=== PATIENT | female | born 1940 | race Caucasian/White ===

== ENCOUNTER 2018-03-14 05:50 | Day surgery (SDC) | payer MEDICARE ==
[2018-03-14] MEDS ORDERED: DIPRIVAN 200 MG/20 ML IV ONE (05:51)
[2018-03-14] MEDS ORDERED: Ketamine HCl 50 MG/ML IJ ONE (05:51)
[2018-03-14] MEDS ORDERED: Lactated Ringers 1,000 ML IV ONE (06:13)
[2018-03-14] MEDS ORDERED: Lactated Ringers 1,000 ML IV SCH (06:30)
[2018-03-14 09:26] VITALS: O2SAT 95
[2018-03-14 09:36] VITALS: BP 131/80; PULSE 83
--- NOTE | 2018-03-14 13:06 | OP ---
SURGERY DATE/TIME: 03/14/2018 0745 PREOPERATIVE DIAGNOSES: 1) Epigastric pain, bloating. 2) The patient has not had a previous colon exam. The patient was felt the need to have endoscopic evaluation POSTOPERATIVE DIAGNOSES: 1) Schatzki's ring. 2) Moderate gastriitis. 3) Sigmoid diverticulosis. PROCEDURES: 1) Esophagogastroduodenoscopy with biopsy. 2) Colonoscopy. SURGEON: Dr. Harrington. ANESTHESIA: Medications given by the anesthesia department. BRIEF HISTORY: The patient is a 77 year old white female who presents now for epigastric discomfort and bloating. The patient reports she has never had a colon exam previously. The patient was felt the need to have endoscopic evaluation. We discussed doing her colon exam during her upper endoscopy. The patient agreed to the procedure. She was described the risks of the procedure including the risk of perforation, phlebitis, untoward reaction to medication, bleeding missed lesions. The patient verbalized her understanding and desired to have the procedure performed. DESCRIPTION OF PROCEDURE: The patient was given the medications by the anesthesia department0. She had continuous pulse oximetry, ECG monitoring, intermittent blood pressure monitoring and tidal CO2 monitoring during the examination. She was placed in the left lateral decubitus position. A bite block was placed and the flexible Olympus gastroscope was used to intubate the oropharynx. The scope was easily passed in the esophagus which appeared to be normal to just proximal to the gastroesophageal junction where there appeared to be a Schatzki's ring this was moderately tight and there also appeared to be the presence of hiatal hernia. The scope was passed into the stomach where the gastric bull was suctioned dry and the stomach was re-insufflated revealing normal gastric rugal folds which distended nicely with inflation of air. The scope was passed along the greater curvature of the stomach where appeared to be evidence of a gastropathy with small areas of punctate bleeding present. The scope was passed along the greater curvature of the stomach to the antrum where the pylorus is intubated. Duodenum inspected and found to be essentially normal. The scope is withdrawn towards the stomach. A retroflex view was obtained of the lesser curvature, fundus and cardia regions of the stomach. Again was noted hiatal hernia. The scope was then redirected towards the antrum and biopsies were obtained to rule out the presence of Helicobacter pylori-type organisms. The scope was withdrawn towards the stomach. There was noted to be a small amount of bleeding from where we passed through the web. The scope was removed from the patient. Next, a digital rectal exam was performed and revealed normal anal sphincter tone and no masses. The flexible Olympus pediatric colonoscope was used to intubate the rectum. A view of the colon was developed to the transverse colon where we ran into a hair pin turn. There was noted to be sigmoid diverticula but we were unable to pass beyond this area. The scope was withdrawn from the patient. Retroflex view obtained in the rectum, no mucosal lesions were encountered. The scope was removed from the patient who tolerated the procedure well and was sent back to OP recovery in good condition. The prep was good.
== END 2018-03-14 09:40 | disposition home or self-care (01) ==
LOC: SDC 05:50
PROVIDERS: ATTEND Family Medicine
DX: K22.2 Esophageal obstruction (principal); R10.13 Epigastric pain; R14.0 Abdominal distension (gaseous); K29.70 Gastritis, unspecified, without bleeding; K57.30 Diverticulosis of large intestine without perforation or abscess without bleeding
CPT/HCPCS: 94250; 99100; J2704

== ENCOUNTER 2021-08-01 17:18 | Emergency (ER) | payer MEDICARE ==
[2021-08-01] MEDS ORDERED: Sodium Chloride 0.9% 500 ML 500 ML IV ONE ×2 (17:34→17:43)
--- NOTE | 2021-08-01 17:34 | ERPHSYRPT ---
- History of Present Illness Time Seen by Provider: 08/01/21 17:29 Source: patient, EMS Exam Limitations: no limitations Physician History: This is an 81-year-old white female patient of Dr. Harrington who was brought into the emergency department by EMS because of confusion and lethargy. However, the patient arrives awake and appears oriented. She has no pain complaints. She has no chest pain. She has no shortness of breath. She does state that she gets a little weak and dizzy when she tries to get up quickly and move around. 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 She does state that she probably does not eat or drink as well as she should. Patient has no known drug allergies. Her oncologist is Dr. Bacon Timing/Duration: today Severity: mild Modifying Factors: Improves With: movement Associated Symptoms: weakness, No nausea, No vomiting, No abdominal pain, No shortness of breath, No cough, No chest pain, No fever, No headaches, No loss of appetite Allergies/Adverse Reactions: No Known Drug Allergies Allergy (Verified 08/01/21 17:22) Home Medications: Tramadol HCl 50 mg [Ultram 50 mg] 50 mg PO HS 03/11/18 [History] Potassium Chloride 10 meq PO DAILY PRN PRN 03/13/20 [History] Furosemide [Lasix] 20 mg PO DAILY PRN PRN 04/18/20 [History] Naproxen Sodium 220 mg [Aleve 220 MG] 220 mg PO QAM 02/05/21 [History] Travel Risk - International Travel Have you traveled outside of the country in past 3 weeks: No - Coronavirus Screening Are you exhibiting any of the following symptoms?: No Close contact with a COVID-19 positive Pt in past 14-21 Days: No - Review of Systems Constitutional: Weakness Eyes: No Symptoms Ears, Nose, & Throat: No Symptoms Respiratory: No Symptoms Cardiac: No Symptoms Abdominal/Gastrointestinal: No Symptoms Genitourinary Symptoms: No Symptoms Musculoskeletal: No Symptoms Skin: No Symptoms Neurological: No Symptoms Psychological: No Symptoms Endocrine: No Symptoms Hematologic/Lymphatic: No Symptoms Immunological/Allergic: No Symptoms All Other Systems: Reviewed and Negative - Past Medical History Pertinent Past Medical History: Yes Neurological History: No Pertinent History ENT History: Macular Degeneration Cardiac History: No Pertinent History Respiratory History: No Pertinent History Endocrine Medical History: No Pertinent History Musculoskeletal History: No Pertinent History GI Medical History: No Pertinent History History: No Pertinent History Psycho-Social History: Anxiety Female Reproductive Disorders: Ovarian Cancer 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 - Past Surgical History Past Surgical History: Yes Neuro Surgical History: No Pertinent History Cardiac: No Pertinent History Respiratory: No Pertinent History Gastrointestinal: Cholecystectomy Genitourinary: No Pertinent History Musculoskeletal: No Pertinent History Female Surgical History: Hysterectomy Other Surgical History: partial thyroidectomy, port placement - Social History Smoking Status: Never smoker Exposure to second hand smoke: No Drug Use: none - Nursing Vital Signs Nursing Vital Signs: Initial Vital Signs Temperature 97.2 F 08/01/21 17:23 Pulse Rate 104 H 08/01/21 17:23 Respiratory Rate 18 08/01/21 17:23 Blood Pressure 135/86 08/01/21 17:23 O2 Sat by Pulse Oximetry 98 08/01/21 17:23 Pain Scale Pain Intensity 0 - Physical Exam General Appearance: no apparent distress, alert, thin Eye Exam: PERRL/EOMI, eyes nml inspection Ears, Nose, Throat Exam: normal ENT inspection, dry mucous membranes Neck Exam: normal inspection, non-tender, supple, full range of motion Respiratory Exam: normal breath sounds, lungs clear, airway intact, No chest tenderness, No respiratory distress Cardiovascular Exam: normal heart sounds, normal peripheral pulses, tachycardia Gastrointestinal/Abdomen Exam: soft, normal bowel sounds, No tenderness, No guarding Pelvic Exam: not done Rectal Exam: not done Back Exam: normal inspection, normal range of motion, No CVA tenderness, No vertebral tenderness Extremity Exam: normal inspection, normal range of motion, pelvis stable Neurologic Exam: alert, oriented x 3, cooperative, 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, normal mood/affect, sensation nml Skin Exam: normal color, warm, dry Lymphatic Exam: No adenopathy SpO2 Interpretation: normal O2 Delivery: Room Air Ordered Tests: Active Orders 24 hr Category Date Time Status IV Insertion STAT Care 08/01/21 17:34 Active HEAD WITHOUT CONTRAST [CT] Stat Exams 08/01/21 17:37 Taken BLOOD CULTURE Stat Lab 08/01/21 18:40 Received CBC W DIFF Stat Lab 08/01/21 18:40 Completed CMP Stat Lab 08/01/21 18:40 Completed Lactic Acid Stat Lab 08/01/21 18:40 Completed MAG [MAGNESIUM] Stat Lab 08/01/21 18:40 Completed UA W/RFX UR CULTURE Stat Lab 08/01/21 18:01 Completed Medication Summary Discontinued Medications Generic Name Dose Route Start Last Admin Trade Name Jack PRN Reason Stop Dose Admin Sodium Chloride 500 mls @ 500 mls/hr 08/01/21 17:34 08/01/21 19:00 Sodium Chloride 0.9% 500 Ml IV 08/01/21 18:33 0 mls/hr .Q1H ONE Infusion Sodium Chloride Confirm 08/01/21 17:43 Sodium Chloride 0.9% 500 Ml Administered 08/01/21 17:44 Dose 500 mls @ ud IV .STK-MED ONE Potassium Chloride 20 meq 08/01/21 19:20 Potassium Chloride 10 Meq Tablet PO 08/01/21 19:21 STAT ONE Lab/Rad Data: Laboratory Result Diagrams 08/01/21 18:40 08/01/21 18:40 Laboratory Results 08/01/21 08/01/21 08/01/21 Range/Units 18:40 18:40 18:40 WBC 3.8 L (4.0-10.5) K/mm3 RBC 5.08 (4.1-5.4) M/mm3 Hgb 14.3 (12.0-16.0) gm/dl Hct 45.9 (35-47) % MCV 90.4 (78-100) fl MCH 28.1 (26-32) pg MCHC 31.2 L (32-36) g/dl RDW 15.0 H (11.5-14.0) % Plt Count 151 (150-450) K/mm3 MPV 12.8 H (7.5-11.0) fl Gran % 59.6 (36.0-66.0) % Eos # (Auto) 0.03 (0-0.5) Absolute Lymphs (auto) 0.90 L (1.0-4.6) Absolute Monos (auto) 0.59 (0.0-1.3) Lymphocytes % 23.6 L (24.0-44.0) % Monocytes % 15.5 H (0.0-12.0) % Eosinophils % 0.8 (0.00-5.0) % Basophils % 0.5 (0.0-0.4) % Absolute Granulocytes 2.27 (1.4-6.9) Basophils # 0.02 (0-0.4) Sodium 140 (137-145) mmol/L Potassium 3.0 L* (3.5-5.1) mmol/L Chloride 101 (98-107) mmol/L Carbon Dioxide 33 H (22-30) mmol/L Anion Gap 9.4 (5-15) MEQ/L BUN 19 H (7-17) mg/dL Creatinine 1.02 (0.52-1.04) mg/dL Estimated GFR 55.1 ML/MIN Glucose 86 (74-106) mg/dL Lactic Acid 1.7 (0.4-2.0) Calcium 8.7 (8.4-10.2) mg/dL Magnesium 1.8 (1.6-2.3) mg/dL Total Bilirubin 0.70 (0.2-1.3) mg/dL AST 52 H (14-36) U/L ALT 34 (0-35) U/L Alkaline Phosphatase 162 H (38-126) U/L Serum Total Protein 7.0 (6.3-8.2) g/dL Albumin 3.5 (3.5-5.0) g/dL Urine Color (YELLOW) Urine Appearance (CLEAR) Urine pH (5-6) Ur Specific [place] (1.005-1.025) Urine Protein (Negative) Urine Ketones (NEGATIVE) Urine Blood (0-5) Mohan/ul Urine Nitrite (NEGATIVE) Urine Bilirubin (NEGATIVE) Urine Urobilinogen (0-1) mg/dL Ur Leukocyte Esterase (NEGATIVE) Urine WBC (Auto) (0-5) /HPF Urine RBC (Auto) (0-2) /HPF U Epithel Cells (Auto) (FEW) /HPF Urine Bacteria (Auto) (NEGATIVE) /HPF Amorphous Crystals (NEGATIVE) /HPF Urine Mucus (Auto) (NEGATIVE) /HPF Urine Culture Reflexed (NO) Urine Glucose (NEGATIVE) mg/dL 08/01/21 Range/Units 18:01 WBC (4.0-10.5) K/mm3 RBC (4.1-5.4) M/mm3 Hgb (12.0-16.0) gm/dl Hct (35-47) % MCV (78-100) fl MCH (26-32) pg MCHC (32-36) g/dl RDW (11.5-14.0) % Plt Count (150-450) K/mm3 MPV (7.5-11.0) fl Gran % (36.0-66.0) % Eos # (Auto) (0-0.5) Absolute Lymphs (auto) (1.0-4.6) Absolute Monos (auto) (0.0-1.3) Lymphocytes % (24.0-44.0) % Monocytes % (0.0-12.0) % Eosinophils % (0.00-5.0) % Basophils % (0.0-0.4) % Absolute Granulocytes (1.4-6.9) Basophils # (0-0.4) Sodium (137-145) mmol/L Potassium (3.5-5.1) mmol/L Chloride (98-107) mmol/L Carbon Dioxide (22-30) mmol/L Anion Gap (5-15) MEQ/L BUN (7-17) mg/dL Creatinine (0.52-1.04) mg/dL Estimated GFR ML/MIN Glucose (74-106) mg/dL Lactic Acid (0.4-2.0) Calcium (8.4-10.2) mg/dL Magnesium (1.6-2.3) mg/dL Total Bilirubin (0.2-1.3) mg/dL AST (14-36) U/L ALT (0-35) U/L Alkaline Phosphatase (38-126) U/L Serum Total Protein (6.3-8.2) g/dL Albumin (3.5-5.0) g/dL Urine Color DANIEL (YELLOW) Urine Appearance CLOUDY (CLEAR) Urine pH 5.0 (5-6) Ur Specific [place] 1.026 (1.005-1.025) Urine Protein 30 (Negative) Urine Ketones NEGATIVE (NEGATIVE) Urine Blood NEGATIVE (0-5) Mohan/ul Urine Nitrite NEGATIVE (NEGATIVE) Urine Bilirubin NEGATIVE (NEGATIVE) Urine Urobilinogen 4 (0-1) mg/dL Ur Leukocyte Esterase NEGATIVE (NEGATIVE) Urine WBC (Auto) 0-2 (0-5) /HPF Urine RBC (Auto) 0-2 (0-2) /HPF U Epithel Cells (Auto) NONE (FEW) /HPF Urine Bacteria (Auto) NONE SEEN (NEGATIVE) /HPF Amorphous Crystals FEW (NEGATIVE) /HPF Urine Mucus (Auto) SLIGHT (NEGATIVE) /HPF Urine Culture Reflexed NO (NO) Urine Glucose NEGATIVE (NEGATIVE) mg/dL - Progress Progress: improved Progress Note: 08/01/21 19:21 CAT scan of the head without contrast shows no acute intracranial abnormality. 08/01/21 19:22 Medical decision making: This patient was sent to us from home because of confusion. However, she does not appear to be confused during this examination. She is hemodynamically stable. Her work-up does not show anything acute or emergent. We will discharge her to home. She has a 3.0 potassium level and we gave her extra potassium this evening and will have her take an extra dose of potassium for the next 48 hours. Counseled pt/family regarding: lab results, diagnosis, need for follow-up, rad results - Departure Departure Disposition: Home Clinical Impression: Hypokalemia, Confusion Condition: Stable Critical Care Time: No Referrals: MICHAEL HARRINGTON [Primary Care Provider] - Follow up/PCP as directed Additional Instructions: Take your potassium twice a day on Wednesday and Wednesday. Call your primary care doctor on 08/04/2021 for further evaluation and management. Drink plenty of fluids.
[2021-08-01 18:21] LABS: Amourphous Crystal FEW /HPF (NEGATIVE); Appearance CLOUDY (CLEAR); Bilirubin NEGATIVE (NEGATIVE); Blood NEGATIVE Ery/ul (0-5); Glucose NEGATIVE (NEGATIVE); Ketones NEGATIVE (NEGATIVE); Leukocyte Esterase NEGATIVE (NEGATIVE); Mucus SLIGHT /HPF (NEGATIVE); Nitrite NEGATIVE (NEGATIVE); Protein,Urine Dip 30 (Negative); RBC 0-2 /HPF (0-2); Specific Gravity 1.026 (1.005-1.025); Urobilinogen 4 mg/dL (0-1); WBC 0-2 /HPF (0-5)
[2021-08-01 18:23] LABS: Bacteria NONE SEEN /HPF (NEGATIVE)
[2021-08-01 18:46] LABS: Absolute Neutrophil Ct (ANC) 2.27 (1.4-6.9); Basophil (Absolute #) 0.02 (0-0.4); Eosinophil % 0.8 % (0.00-5.0); Eosinophil (Absolute #) 0.03 (0-0.5); Hematocrit 45.9 % (35-47); Hemoglobin 14.3 gm/dl (12.0-16.0); Lymphocytes % 23.6 % (24.0-44.0); Mean Cell Volume 90.4 fl (78-100); Mean Corpuscular Hemoglobin 28.1 pg (26-32); Mean Corpuscular Hgb Concent. 31.2 g/dl (32-36); Mean Platelet Volume 12.8 fl (7.5-11.0); Monocyte (Absolute #) 0.59 (0.0-1.3); Monocytes % 15.5 % (0.0-12.0); Neutrophil % 59.6 % (36.0-66.0); Platelet Count 151 K/mm3 (150-450); Red Blood Count 5.08 M/mm3 (4.1-5.4); White Blood Count 3.8 K/mm3 (4.0-10.5)
[2021-08-01 19:00] LABS: ALBUMIN 3.5 g/dL (3.5-5.0); ANION GAP 9.4 MEQ/L (5-15); BILIRUBIN,TOTAL 0.7 mg/dL (0.2-1.3); Calcium 8.7 mg/dL (8.4-10.2); Creatinine 1 1.02 mg/dL (0.52-1.04); EST GLOMERULAR FILTRATION RATE 55.1 ML/MIN; MAGNESIUM 1.8 mg/dL (1.6-2.3)
[2021-08-01] MEDS ORDERED: Klor Con 10 MEQ PO ONE ×2 (19:20→19:24)
[2021-08-01 19:28] VITALS: BP 136/99; PULSE 98; O2SAT 96
--- NOTE | 2021-08-01 21:54 | XRAY ---
Indication: Dizziness and lethargy. Poor historian. Multiple contiguous axial images obtained through the head without contrast. Comparison: October 26, 2009. Age-appropriate global atrophy and minimal periventricular degenerative micro-ischemia. No acute intracranial hemorrhage, abnormal extra-axial fluid collection, or mass effect. Fourth ventricle is midline without hydrocephalus. Bony calvarium intact. Visualized paranasal sinuses and mastoid air cells are clear. Impression: Nonacute senile brain. Comment: Preliminary interpretation made by [facility]. No critical discrepancy.
== END 2021-08-01 20:52 | disposition home or self-care (01) ==
LOC: ED 17:18
DX: R41.0 Disorientation, unspecified (principal); E87.6 Hypokalemia; C56.9 Malignant neoplasm of unspecified ovary; C79.89 Secondary malignant neoplasm of other specified sites
CPT/HCPCS: 36000; 36415; 70450; 80053; 81001; 83605; 83735; 85025; 87040; 99284; U0003; J1642; A9270-GY